=== PATIENT | male | born 2000 | race Caucasian/White ===

== ENCOUNTER 2023-03-27 20:45 | Emergency (ER) | payer OTHER ==
--- NOTE | 2023-03-27 20:58 | ERPHSYRPT ---
- History of Present Illness Time Seen by Provider: 03/27/23 20:58 Source: patient Exam Limitations: no limitations Physician History: This is a 23-year-old white male whose tetanus status is not up-to-date and suffered an accidental laceration approximately 30 prior to arrival. Patient was cutting weeds in the dark with a machete knife. He accidentally caused a 2 cm x 0.5 cm laceration to the skin of his left anterior knee. Timing/Duration: today Quality: painful Severity: mild Location: extremities (Tomorrow skin of anterior left knee) Associated Symptoms: other (Skin laceration left anterior knee) Allergies/Adverse Reactions: No Known Drug Allergies Allergy (Verified 03/27/23 20:52) Home Medications: No Reportable Medications [No Reported Medications] 03/27/23 [History] Travel Risk - International Travel Have you traveled outside of the country in past 3 weeks: No - Coronavirus Screening Are you exhibiting any of the following symptoms?: No Close contact with a COVID-19 positive Pt in past 14-21 Days: No - Review of Systems Constitutional: No Symptoms Eyes: No Symptoms Ears, Nose, & Throat: No Symptoms Respiratory: No Symptoms Cardiac: No Symptoms Abdominal/Gastrointestinal: No Symptoms Genitourinary Symptoms: No Symptoms Musculoskeletal: No Symptoms Skin: Other (Skin laceration 2 cm anterior left knee) Neurological: No Symptoms Psychological: No Symptoms Endocrine: No Symptoms Hematologic/Lymphatic: No Symptoms Immunological/Allergic: No Symptoms All Other Systems: Reviewed and Negative - Past Medical History Pertinent Past Medical History: No - Past Surgical History Past Surgical History: No - Nursing Vital Signs Nursing Vital Signs: Initial Vital Signs Temperature 98.2 F 03/27/23 20:52 Pulse Rate 78 03/27/23 20:52 Respiratory Rate 16 03/27/23 20:52 Blood Pressure 102/56 03/27/23 20:52 O2 Sat by Pulse Oximetry 97 03/27/23 20:52 Pain Scale Pain Intensity 4 - Physical Exam General Appearance: no apparent distress, alert, anxiety Eye Exam: PERRL/EOMI, eyes nml inspection Ears, Nose, Throat Exam: normal ENT inspection, moist mucous membranes Neck Exam: normal inspection, non-tender, supple, full range of motion Respiratory Exam: airway intact, No chest tenderness, No respiratory distress Gastrointestinal/Abdomen Exam: No tenderness Rectal Exam: not done Back Exam: normal inspection, normal range of motion, No CVA tenderness, No vertebral tenderness Extremity Exam: normal range of motion, lacerations (2 cm skin laceration anterior left knee. Wound evaluated to the base without evidence of foreign body.) Neurologic Exam: alert, oriented x 3, cooperative, general administrator II-XII nml as tested, normal mood/affect, nml cerebellar function, nml station & gait, sensation nml Skin Exam: laceration (See above) Lymphatic Exam: No adenopathy SpO2 Interpretation: normal O2 Delivery: Room Air Procedures - Laceration/Wound Repair Left Anterior Knee Time of Procedure: 21:15 Wound Location: Left, lower leg (Skin of anterior left knee) Wound Length (cm): 2 Wound's Depth, Shape: superficial, linear, into subcut Wound Explored: to base (Wound explored to the base with no foreign body noted. Exhalation showed skin edge bleeding which was cauterized with a pen cauteriza tion device) Irrigated: Yes Hibiclens Prep: Yes Anesthesia: 1% Lidocaine Volume Anesthetic (ccs): 6 Wound Repaired With: Dakota (4 dakota placed in the skin) Layer Closure?: No Progress: 03/27/23 21:37 After skin laceration site closed, thin layer bacitracin ointment was applied. Pressure dressing was applied with a nonstick gauze and wrap. There were no complications and patient tolerated the procedure well - Course Nursing assessment & vital signs reviewed: Yes Ordered Tests: Active Orders 24 hr Category Date Time Status Wound Care STAT Care 03/27/23 21:04 Active Medication Summary Discontinued Medications Generic Name Dose Route Start Last Admin Trade Name Joby PRN Reason Stop Dose Admin Bacitracin Zinc 0.9 each 03/27/23 21:04 03/27/23 21:14 Bacitracin Packet 1 Each Pckt TP 03/27/23 21:05 0.9 each STAT ONE Administration Bacitracin Zinc Confirm 03/27/23 21:12 Bacitracin Packet 1 Each Pckt Administered 03/27/23 21:13 Dose 1 each .ROUTE .STK-MED ONE Diphtheria/Tetanus/Acell Pertussis 0.5 ml 03/27/23 21:11 03/27/23 21:15 Tdap --Diph,Pertuss(Acell),Tet Vac/Pf 0.5 Ml Vial IM 03/27/23 21:12 0.5 ml .ONCE ONE Administration Diphtheria/Tetanus/Acell Pertussis Confirm 03/27/23 21:13 Tdap --Diph,Pertuss(Acell),Tet Vac/Pf 0.5 Ml Vial Administered 03/27/23 21:14 Dose 0.5 ml IM .STK-MED ONE Lidocaine HCl 5 ml 03/27/23 21:04 03/27/23 21:07 Lidocaine Hcl 1% 20 Ml Mdv 20 Ml Ml IJ 03/27/23 21:05 5 ml STAT ONE Administration - Progress Progress: improved Progress Note: 03/27/23 21:38 This patient's medical issue is 1 of low complexity. The level of complexity in the work-up performed is based on review of the patient's past medical history, review of the patient's drug allergy list, review of the patient's medication list, history of present illness and physical findings on examination. No radiographic or laboratory studies are necessary in this patient. Counseled pt/family regarding: diagnosis, need for follow-up Medical Desision Making - Independent Historian Additional History obtained from: Father - Diagnostic Testing Diagnostic test were ordered, analyzed, and reviewed by me: No - Risk of complications Minimal Risk: Minimal risk of morbidity - Departure Departure Disposition: Home Clinical Impression: Laceration of left knee Condition: Stable Critical Care Time: No Additional Instructions: Keep current dressing in place until the evening of 03/28/2023. At that time, may remove the dressing. Wash the laceration repair site with soap and water. Do not scrub. After the area is rinsed, blot dry use a hair tinter. Reapply thin layer of antibiotic ointment and cover with a nonstick gauze. Do this daily. May use Tylenol and ibuprofen for pain control. Staple removal in 8 to 10 days.
[2023-03-27 21:04] VITALS: TEMP 98.2
[2023-03-27] MEDS ORDERED: XYLOCAINE 1% HCL 20 ML MDV IJ ONE (21:04)
[2023-03-27] MEDS ORDERED: BACIGUENT PACKET TP ONE (21:04)
[2023-03-27] MEDS ORDERED: Adacel Vial IM ONE ×2 (21:11→21:13)
[2023-03-27] MEDS ORDERED: BACIGUENT PACKET ONE (21:12)
[2023-03-27] MEDS ORDERED: NORCO 5/325 MG PO ONE (21:40)
[2023-03-27] MEDS ORDERED: NORCO 5/325 MG ONE (21:49)
[2023-03-27 21:56] VITALS: BP 106/65; PULSE 56; RESP 16; O2SAT 99
== END 2023-03-27 21:57 | disposition home or self-care (01) ==
LOC: ED 20:45
DX: S81.012A Laceration without foreign body, left knee, initial encounter (principal); W26.0XXA Contact with knife, initial encounter; Y93.H2 Activity, gardening and landscaping; Z23 Encounter for immunization
CPT/HCPCS: 12001; 90471; 90715; 96372; 99283; A9270-GY